=== PATIENT | male | born 1980 ===

== ENCOUNTER 2021-07-27 17:24 | Emergency (ER) | payer OTHER ==
[~2021-07-27] VITALS: Ht 175.3 cm; Wt 77.1 kg
[2021-07-27 20:16] LABS: Basophils # (auto) 0.1 10 ^3/uL (0-0.2); Basophils % (auto) 0.7 % (0.0-2.0); Eosinophils # (auto) 0.2 10 ^3/uL (0-0.8); Hematocrit 46.2 % (41.0-53.0); Lymphocytes % (auto) 24.3 % (10.0-50.0); Mean Corpuscular Hgb Conc. 34.5 g/dL (32.0-36.0); Mean Corpuscular Volume 89.7 fL (80.0-100.0); Monocytes # (auto) 0.7 10 ^3/uL (0-1.3); Monocytes % (auto) 8.2 % (0.0-12.0); Neutrophils # (auto) 5.4 10 ^3/uL (1.6-8.6); Neutrophils % (auto) 64.8 % (37.0-80.0); Nucleated Red Blood Cells % 0.1 %; Red Blood Cells 5.16 10^6/uL (4.5-5.90); Red Cell Distribution Width 12.6 % (11.8-14.3); White Blood Cell 8.3 10^3/uL (4.4-10.8)
[2021-07-27 20:31] LABS: INR 1.01 (0.9-1.15)
[2021-07-27 20:32] LABS: Albumin 3.7 g/dL (3.4-5.0); BUN/Creatinine Ratio 14.8; CRP High Sensitivity 0.44 mg/dL (< 0.3); Calcium 8.8 mg/dL (8.5-10.1); Magnesium 2.2 mg/dL (1.6-2.6); Potassium 3.9 mmol/L (3.5-5.1)
[2021-07-27 20:35] LABS: Total Protein 7.9 g/dL (6.4-8.2)
[2021-07-27 21:14] VITALS: BP 132/64
[2021-07-28] MEDS ORDERED: CLINDAMYCIN 600MG IV 50 ML IV ONE (01:00)
[2021-07-28] MEDS ORDERED: SODIUM CHLORIDE 0.9% 1,000 ML IV ONE (01:00)
[2021-07-28] MEDS ORDERED: KETOROLAC TROMETH 30 MG/ML 1ML VIAL IV ONE (01:00)
== END 2021-07-28 04:04 | disposition home or self-care (01) ==
LOC: EEVIPCON 17:24 → EDBD 17:24 → ER 17:24
DX: L03.116 Cellulitis of left lower limb (principal); Z20.822 Contact with and (suspected) exposure to COVID-19
CPT/HCPCS: 36415; 71045; 72192; 80053; 83605; 83735; 85025; 85610; 85652; 86141; 87040; 87205; 87426; 96365; 96366; 96375; 99285; J1885; J3490; J7030